=== PATIENT | male | born 1995 | race Two or more races ===

== ENCOUNTER 2017-07-08 20:26 | Emergency (ER) | payer OTHER ==
[~2017-07-08] VITALS: Ht 160 cm; Wt 118.4 kg
[~2017-07-08 20:26] MED LIST: VASOTEC2.5 MG
[2017-07-08] MEDS ORDERED: OSEL75CA PO (21:39)
== END 2017-07-08 22:02 | disposition home or self-care (01) ==
LOC: ER 20:26
DX: J11.1 Influenza due to unidentified influenza virus with other respiratory manifestations (principal); R50.9 Fever, unspecified